=== PATIENT | female | born 1980 | race Caucasian/White ===

== ENCOUNTER → 2020-08-23 | Outpatient (CLI) | payer OTHER ==
--- NOTE | 2020-08-23 16:37 | KCIC ---
EXAMINATION: MRI RIGHT KNEE WITHOUT IV CONTRAST CLINICAL HISTORY: Right knee pain and swelling. History of injury 2 months ago playing hockey. Pain i s anterior. TECHNIQUE: Multiplanar multisequential images obtained through the knee without intravenous contrast. COMPARISON: None FINDINGS: MENISCI: Medial Meniscus: Intact. Lateral Meniscus: Intact. LIGAMENTS: ACL: Intact PCL: Intact MCL: Intact LCL Complex: Intact CARTILAGE: Medial Femoral Condyle: Normal Medial Tibial Plateau: Normal Lateral Femoral Condyle: Normal Lateral Tibial Plateau: Normal Patella: Moderate sized area(s) of predominantly low grade (less than 50% thickness) cartilage loss a nd or fissuring with smaller area(s) of full thickness cartilage loss and or fissuring with subchondr al marrow reactive/cystic changes Trochlea: Normal TENDONS: Distal quadriceps and patellar tendons intact. Popliteus tendon intact. BONES AND MARROW: No evidence of acute fracture or suspicious marrow replacing process. Mild marrow e mary carmen in the patella which is not confined to the subchondral region, possibly a bone contusion. MUSCLES: Muscle bulk and signal intensity within normal limits. JOINT FLUID AND SYNOVIUM: Small joint effusion. No synovitis. No Schaeffer's cyst. IMPRESSION: No meniscus tear or acute ligamentous injury. Mild chondral wear in the patella with subchondral reactive changes and additional patellar marrow ed rina which may represent a bone contusion related to reported injury. Electronically signed by: Tj Das DO (08/23/2020 4:34 PM) [id number]
== END ==
LOC: KCIC MRI 14:09
PROVIDERS: ATTEND Family Medicine
DX: M25.461 Effusion, right knee (principal)
CPT/HCPCS: 73721